=== PATIENT | female | born 1985 | race African-American/Black ===

== ENCOUNTER 2019-08-05 15:02 | Emergency (ER) | payer OTHER | END 2019-08-05 15:44 | disposition home or self-care (01) | LOC: NAV ERS 15:02 | DX: R11.2 Nausea with vomiting, unspecified (principal); M19.90 Unspecified osteoarthritis, unspecified site; F17.210 Nicotine dependence, cigarettes, uncomplicated; Z79.891 Long term (current) use of opiate analgesic | CPT/HCPCS: 99281 ==

== ENCOUNTER 2019-08-05 15:38 | Outpatient (CLI) | payer OTHER ==
[2019-08-05 16:15] LABS: BHCG - Serum POSITIVE (NEGATIVE); Pregs Control Bar Appear? YES (CONTROL BAR)
== END 2019-08-05 15:39 | disposition home or self-care (01) ==
LOC: NAV LAB 15:38
DX: Z00.00 Encounter for general adult medical examination without abnormal findings (principal)
CPT/HCPCS: 84703